=== PATIENT | male | born 2000 | race Asian ===

== ENCOUNTER 2022-02-16 14:18 | Outpatient (CLI) | payer SELFPAY ==
--- NOTE | 2022-02-16 14:30 | CRLHL7_ITS ---
For Patients: As a result of the Cures Act, medical imaging exams and procedure reports are released immediately into your electronic medical record. You may view this report before your referring provider. If you have questions, please contact your health care provider. INDICATION: TUBERCULOSIS COMPARISON: none TECHNIQUE: Two views of the chest were obtained. FINDINGS: The lungs are clear. There is no evidence of a suspicious infiltrate, cavitary lesion or focal pleural abnormality. Pulmonary philomena are of normal size and density. Heart and blood vessels appear normal and there is no evidence of pleural fluid. Overlying catheter noted. IMPRESSION: No active pulmonary process identified. Dictated by Alistair Castro MD @ 02/17/2022 9:46:38 AM (Electronically Signed)
== END 2022-02-16 14:19 | disposition home or self-care (01) ==
LOC: RAD 14:24
PROVIDERS: Visit Provider Nurse Practitioner Adult Health
DX: A15.9 Respiratory tuberculosis unspecified (principal)
CPT/HCPCS: 71046